=== PATIENT | male | born 1965 | race Caucasian/White ===

== ENCOUNTER 2019-09-04 10:06 | Inpatient (IN) ==
[2019-09-04 10:42] LABS: BASO# 0.03 X1000 (0.0-0.2); BASO% 0.2 % (0.0-0.8); EOS# 0.13 X1000 (0.0-0.7); EOS% 0.8 % (0.0-10.0); HEMATOCRIT 45.7 % (42.0-52.0); HEMOGLOBIN 14.6 g/dL (14.0-18.0); IMM GRAN# 0.06 X1000 (0.0-0.04); IMM GRAN% 0.4 % (0.0-0.5); LYMPH# 2.73 X1000 (1.2-3.4); LYMPH% 17.6 % (20.5-51.1); MCH 30.4 PG (27-31); MCHC 31.9 g/dL (33-37); MCV 95.2 FL (81-99); MONO# 1.25 X1000 (0.11-0.59); MPV 11.5 FL (7.4-10.4); NEUT# 11.33 X1000 (1.4-6.5); PLT 245 X1000 (130-400); RDW 13.4 % (11.5-14.5); WBC 15.53 X1000 (4.8-10.8)
--- NOTE | 2019-09-04 10:52 | EKG Report ---
Test Performed on : 09/04/2019 10:21:31 AM Test Reason : dizzy pale weak dizzy hx a flutter htn Blood Pressure : / mmHG Vent. Rate : 109 BPM Atrial Rate : 109 BPM P-R Int : 152 ms QRS Dur : 070 ms QT Int : 344 ms P-R-T Axes : 033 030 029 degrees QTc Int : 463 ms Sinus tachycardia. Otherwise normal ECG When compared with ECG of 01-JUN-2016 19:51, No significant change was found Unconfirmed Result
[2019-09-04 11:05] LABS: AMYLASE 24 U/L (20-200); CK PROFILE 45 U/L (24-204)
[2019-09-04 11:21] LABS: AGAP 15; ALBUMIN 4.5 g/dL (3.5-5.0); ALKALINE PHOSPHATASE 108 U/L (32-122); BUN 9 mg/dL (8-22); CALCIUM 9.4 mg/dL (8.8-10.2); CHLORIDE 101 mmol/L (98-107); COSMO 273; CREATININE 0.9 mg/dL (0.7-1.2); ESTIMATED GFR > 60; GLUCOSE 115 mg/dL (70-104); GOT 19 U/L (10-34); GPT 31 U/L (10-44); LIPASE 19 U/L (13-60); SODIUM 137 mmol/L (136-145); TCO2 20 mmol/L (25-35); TOTAL PROTEIN 7.5 g/dL (6.3-8.3)
[2019-09-04 11:50] LABS: URINE SOURCE CLEAN CATCH
[2019-09-04 11:56] LABS: BILIRUBIN URINE NEGATIVE (NEGATIVE); BLOOD URINE NEGATIVE (NEGATIVE); COLOR YELLOW; GLUCOSE URINE NEGATIVE (NEGATIVE); KETONE URINE NEGATIVE (NEGATIVE); LEUKOCYTES URINE NEGATIVE (NEGATIVE); NITRITE URINE NEGATIVE (NEGATIVE); PH URINE 5.5; PROTEIN URINE TRACE mg/dL (NEGATIVE); SP GRAVITY URINE 1.021; TURBIDITY URINE CLEAR (CLEAR); UROBILINOGEN URINE NORMAL (NORMAL)
[2019-09-04 11:58] LABS: UR EPITHELIAL CELLS <10 /HPF (<10); URINE BACTERIA NEGATIVE /HPF; URINE RBC <10 /HPF (<10); URINE WBC <10 /HPF (<10)
[2019-09-04] MEDS ORDERED: ZOFRAN IV ONE (12:20)
--- NOTE | 2019-09-04 12:42 | Diag Imaging Result Doc PS360 ---
FLAT/UPRIGHT ABD/1 VIEW CHEST - 09/04/2019 INDICATION: abd pain dizzy weakness TECHNIQUE: COMPARISON: 05/03/2019 FINDINGS: The chest is clear. There is a nonobstructive bowel gas pattern. No free air or abnormal calcifications. IMPRESSION: Negative exam. Electronically signed by Sulaiman Hector 09/04/2019 12:40 PM
--- NOTE | 2019-09-04 12:58 | Diag Imaging Result Doc PS360 ---
CT ABDOMEN/PELVIS W/O CONTRAST - 09/04/2019 INDICATION: abd pain COMPARISON: None FINDINGS: The lung bases are clear and the heart size is normal. There is severe fatty change of the liver. No radiodense renal stones. No hydronephrosis or hydroureter. There is some inflammatory stranding around the proximal sigmoid colon. There are numerous diverticula here. No free air or free fluid. Urinary bladder, prostate, and rectum. There are moderate degenerative changes of the spine. No acute or suspicious bony lesion. IMPRESSION: 1. Acute diverticulitis of the sigmoid colon. No free air or abscess. 2. Severe fatty liver. This exam was performed using automated exposure control, adjustment of mA or kV according to patient size, and/or use of iterative reconstruction technique Electronically signed by Sulaiman Hector 09/04/2019 12:56 PM
[2019-09-04] MEDS ORDERED: ROCEPHIN IM ONE (13:24)
[2019-09-04] MEDS ORDERED: XYLOCAINE-MPF 1% INJ ONE (13:24)
[2019-09-04] MEDS ORDERED: FLAGYL 500 MG/NS 500 MG/100 ML IVPB IV ONE (13:24)
[2019-09-04] MEDS ORDERED: ROCEPHIN 1 GM in NS 50 ML IV ONE (13:25)
--- NOTE | 2019-09-04 13:28 | PROVIDER DOCUMENTATION ---
This chart was entered by Michelle Dorsey Scribe, acting as scribe for Zena Smalls MD. HPI-Abdominal Pain/GI Problem - General Chief Complaint: Abdominal Pain Stated Complaint: SEVERE ABD PAIN Time Seen by Provider: 09/04/19 11:36 Source: patient Allergies/Adverse Reactions: Patient Allergies Allergy/AdvReac Type Severity Reaction Status Date / Time No Known Allergies Allergy Verified 06/01/16 19:23 Home Medications: Home Medication List Medication Instructions Recorded Confirmed Last Taken Type Flecainide Acetate 50 mg PO BID 06/01/16 09/04/19 06/01/16 History Metoprolol Tartrate 25 mg PO BID 06/01/16 09/04/19 06/01/16 History Rabeprazole [Aciphex] 20 mg PO DAILY 06/01/16 09/04/19 06/01/16 History Telmisartan [Micardis] 40 mg PO DAILY 06/01/16 09/04/19 06/01/16 History Cephalexin [Keflex] 500 mg PO TID #20 cap 09/04/19 Unknown Rx Metronidazole [Flagyl] 500 mg PO TID #21 tab 09/04/19 Unknown Rx Montelukast Sodium 10 mg PO DAILY 09/04/19 09/04/19 Unknown History - History of Present Illness-ABD Nature of Presenting Problems: Pt is a 54 yowm with c/o of generalized abdominal pain that started and has gotten worse with the worst pain right above his groin area. Pt states " it feels like he did 100 situps". Pt states he has had some dizziness but denies n/v/f/d/constipation. Pt sts he has HTN and atrial flutter that are medication controlled but is not experiencing any chest pain or respiratory issues. Pt is alert and nontoxic in appearance. Abdominal Pain Onset Location: reports: suprapubic (pain more intense), generalized abdomen Pain Radiation: reports: periumbilical Quality of Pain: reports: aching, stabbing Severity in ED: reports: moderate Onset/Duration: reports: gradual, 2 days ago Timing: reports: still present, constant, getting worse Activities at Onset: reports: light activity Modifying Factors: worse with: movement, palpation Associated Symptoms: denies: back/neck pain, chest pain, constipation, cough, diarrhea, nausea, shortness of breath, syncope, vomiting Last BM: 24 hours ago Dark Stools Present?: reports: none noticed Bruising or Bleeding Gums?: No Similar Symptoms Previously?: No Review of Systems - Adult - REVIEW OF SYSTEMS - ADULT Constitutional: denies: chills, fever Eyes: reports: no symptoms reported Ears, Nose, Mouth & Throat: reports: no symptoms reported Cardiovascular: denies: chest pain, syncope Respiratory: denies: cough, shortness of breath Gastrointestinal: reports: see HPI, abdominal pain. denies: constipation, diarrhea, nausea, vomiting Genitourinary: denies: frequency, hesitency, incontinence Musculoskeletal: denies: back pain, muscle weakness Integumentary: reports: no symptoms reported Neurological: denies: dizziness/vertigo, headache/migraines, syncope Psychiatric: reports: no symptoms reported Endocrine: reports: no symptoms reported Hematologic/Lymphatic: reports: no symptoms reported Allergic/Immunologic: reports: no symptoms reported All Other Systems: Reviewed and Negative Past History - Adult - PAST MEDICAL HISTORY-ADULT Review of Records: reports: Old Records Reviewed, Nursing Assessment Review, Medications Reviewed, Social history reviewed & non-contributory. Major Childhood Illnesses: reports: denies history Cardiovascular: reports: HTN, other (ATRIAL FLUTTER) Respiratory: reports: denies history Gastrointestinal: reports: denies history Obstetrical/Gynecological: reports: denies history Genitourinary: reports: denies history Musculoskeletal: reports: denies history Neurological: reports: denies history Endocrine/Immune: reports: denies history Other Conditions: reports: denies history - PRIOR SURGERIES/PROCEDURES Surgical/Procedure History: reports: back/neck (NECK FUSION) - IMMUNIZATION STATUS Childhood Immunizations: See Nurse Assessment Flu Vaccine: See Nurse Assessment - FAMILY HISTORY Family History: reviewed, not pertinent - SOCIAL HISTORY Smoking: non-smoker Substance Use: alcohol Alcohol Use Frequency: occasionally Number of drinks per typical drinking period:: 1 drink Living Situation: family Physical Exam-General - PHYSICAL EXAM-ADULT Initial Vital Signs Reviewed: Yes (HR 105) - CONSTITUTIONAL General Appearance: appears well, alert, mild distress, obese - EYES Eyes: PERRL/EOMI, pink conjunctivae - HEAD, EARS, NOSE, MOUTH & THROAT HENMT: normocephalic/atraumatic, moist mucous membranes, normal ENT inspection - NECK Neck: non-tender, full range of motion, supple, normal inspection - RESPIRATORY Respiratory: chest non-tender, lungs clear, normal breath sounds, no pleuratic chest pain, no respiratory distress, no accessory muscle use - CARDIOVASCULAR Cardiovascular: normal peripheral pulses, no gallop, no JVD, tachycardia, other (+2 pedal edema) - GASTROINTESTINAL (ABDOMEN) Abdominal Exam: normal bowel sounds, soft, tenderness (mild suprapubic) - GENITOURINARY Male Genitalia: deferred - MUSCULOSKELETAL Back Exam: normal inspection, no CVA tenderness, no vertebral tenderness Extremity: normal range of motion, non-tender, normal gait, normal inspection - SKIN Integumentary: normal color, normal turgor, warm/dry - PSYCHIATRIC Psych/Mental Status: normal thought content, normal thought process, oriented x 3, anxious Progress - PLAN OF CARE/RESULTS Progress/Plan/Lab Results: Vital Signs - 8 hr 09/04/19 10:15 Temperature 98 F Pulse Rate 105 H Respiratory Rate 22 Blood Pressure 196/69 O2 Sat by Pulse Oximetry 97 Laboratory Results - last 24 hr 09/04/19 09/04/19 09/04/19 10:15 10:17 10:17 WBC 15.53 H RBC 4.80 Hgb 14.6 Hct 45.7 MCV 95.2 MCH 30.4 MCHC 31.9 L RDW Std Deviation 13.4 Plt Count 245 MPV 11.5 H Immature Gran % (Auto) 0.4 Neut % (Auto) 73.0 Lymph % (Auto) 17.6 L [place] % (Auto) 8.0 Eos % (Auto) 0.8 Baso % (Auto) 0.2 Immature Gran # (Auto) 0.06 H Neut # (Auto) 11.33 H Lymph # (Auto) 2.73 [place] # (Auto) 1.25 H Eos # (Auto) 0.13 Baso # (Auto) 0.03 D-Dimer, Quantitative Sodium Potassium Chloride Carbon Dioxide Anion Gap BUN Creatinine Estimated GFR/1.73 m2 BUN/Creatinine Ratio Glucose Calculated Osmolality Calcium Total Bilirubin AST ALT Alkaline Phosphatase Creatine Kinase 45 Troponin T High Sens Cyt-D-Fesyicchqty Pept Total Protein Albumin Globulin Albumin/Globulin Ratio Amylase 24 Lipase Urine Source CLEAN CATCH Urine Color YELLOW Urine Turbidity CLEAR Urine pH 5.5 Ur Specific [place] 1.021 Urine Protein TRACE A Ur Glucose (Stick) NEGATIVE Ur Ketones (Stick) NEGATIVE Urine Blood NEGATIVE Urine Nitrite NEGATIVE Urine Bilirubin NEGATIVE Urobilinogen Dipstick NORMAL Urine Leukocytes NEGATIVE Urine WBC (Auto) <10 Urine RBC (Auto) <10 U Epithel Cells (Auto) <10 Urine Bacteria (Auto) NEGATIVE 09/04/19 09/04/19 09/04/19 10:17 10:17 10:17 WBC RBC Hgb Hct MCV MCH MCHC RDW Std Deviation Plt Count MPV Immature Gran % (Auto) Neut % (Auto) Lymph % (Auto) [place] % (Auto) Eos % (Auto) Baso % (Auto) Immature Gran # (Auto) Neut # (Auto) Lymph # (Auto) [place] # (Auto) Eos # (Auto) Baso # (Auto) D-Dimer, Quantitative 0.30 Sodium 137 Potassium 4.0 Chloride 101 Carbon Dioxide 20 L Anion Gap 15 BUN 9 Creatinine 0.9 Estimated GFR/1.73 m2 > 60 BUN/Creatinine Ratio 10 Glucose 115 H Calculated Osmolality 273 Calcium 9.4 Total Bilirubin 1.30 H AST 19 ALT 31 Alkaline Phosphatase 108 Creatine Kinase Troponin T High Sens Gtk-T-Eokcwgqsqva Pept 47 Total Protein 7.5 Albumin 4.5 Globulin 3.0 Albumin/Globulin Ratio 2.0 Amylase Lipase 19 Urine Source Urine Color Urine Turbidity Urine pH Ur Specific [place] Urine Protein Ur Glucose (Stick) Ur Ketones (Stick) Urine Blood Urine Nitrite Urine Bilirubin Urobilinogen Dipstick Urine Leukocytes Urine WBC (Auto) Urine RBC (Auto) U Epithel Cells (Auto) Urine Bacteria (Auto) 09/04/19 10:17 WBC RBC Hgb Hct MCV MCH MCHC RDW Std Deviation Plt Count MPV Immature Gran % (Auto) Neut % (Auto) Lymph % (Auto) [place] % (Auto) Eos % (Auto) Baso % (Auto) Immature Gran # (Auto) Neut # (Auto) Lymph # (Auto) [place] # (Auto) Eos # (Auto) Baso # (Auto) D-Dimer, Quantitative Sodium Potassium Chloride Carbon Dioxide Anion Gap BUN Creatinine Estimated GFR/1.73 m2 BUN/Creatinine Ratio Glucose Calculated Osmolality Calcium Total Bilirubin AST ALT Alkaline Phosphatase Creatine Kinase Troponin T High Sens < 6 Dtz-C-Zfnsvvffjqx Pept Total Protein Albumin Globulin Albumin/Globulin Ratio Amylase Lipase Urine Source Urine Color Urine Turbidity Urine pH Ur Specific [place] Urine Protein Ur Glucose (Stick) Ur Ketones (Stick) Urine Blood Urine Nitrite Urine Bilirubin Urobilinogen Dipstick Urine Leukocytes Urine WBC (Auto) Urine RBC (Auto) U Epithel Cells (Auto) Urine Bacteria (Auto) Orders Category Date Time Status Nursing- Obtain EKG ONCE Care 09/04/19 10:22 Active FLAT/UPRIGHT ABD/1 VIEW CHEST [RAD] Stat Exams 09/04/19 10:22 Taken AMYLASE [CHEM] Stat Lab 09/04/19 10:17 Completed CBC WITH DIFF [HEME] Stat Lab 09/04/19 10:17 Completed CK PROFILE [SP CHEM] Stat Lab 09/04/19 10:17 Completed COMPREHENSIVE METABOLIC PANEL [CHEM] Stat Lab 09/04/19 10:17 Completed D-DIMER [COAG] Stat Lab 09/04/19 10:17 Completed LIPASE [CHEM] Stat Lab 09/04/19 10:17 Completed PRO B-NATRIURETIC PEPTIDE Stat Lab 09/04/19 10:17 Completed TROPONIN T HIGH SENSITIVITY Stat Lab 09/04/19 10:17 Completed URINALYSIS W/POSS RFLX CULT [URINALYSIS] Stat Lab 09/04/19 10:15 Completed EKG [EKG] Stat Ther 09/04/19 10:22 Draft Result Diagrams: 09/04/19 10:17 09/04/19 10:17 - REASSESSMENT Reassessment #1 Status: improving (patient with evidence of diverticulitis will treat outpatient abx and fu with GI) - XRAY 1 XRAY Study: Abdomen Impression: See EMR Report (FLAT/UPRIGHT ABD/1 VIEW CHEST - 09/04/2019 INDICATION: abd pain dizzy weakness TECHNIQUE: COMPARISON: 05/03/2019 FINDINGS: The chest is clear. There is a nonobstructive bowel gas pattern. No free air or abnormal calcifications. IMPRESSION: Negative exam. Electronically signed by Sulaiman Hector 09/04/2019 12:40 PM 09/04/19 1240 Interpreting Physician: Sulaiman Hector MD Dictated Date/Time: 09/04/19 1236 cc: Zena Smalls MD; Jacob Ta MD) - CT/MRI 1 CT Study: Abdomen Impression: Abnormal, See EMR Report (CT ABDOMEN/PELVIS W/O CONTRAST - 09/04/2019 INDICATION: abd pain COMPARISON: None FINDINGS: The lung bases are clear and the heart size is normal. There is severe fatty change of the liver. No radiodense renal stones. No hydronephrosis or hydroureter. There is some inflam matory stranding around the proximal sigmoid colon. There are numerous diverticula here. No free air or free fluid. Urinary bladder, prostate, and rectum. There are moderate degenerative changes of the spine. No acute or suspicious bony lesion. IMPRESSION: 1. Acute diverticulitis of the sigmoid colon. No free air or abscess. 2. Severe fatty liver. This exam was performed using automated exposure control, adjustment of mA or kV according to patient size, and/or use of iterative reconstruction technique Electronically signed by Sulaiman Hector 09/04/2019 12:56 PM 09/04/19 1256 Interpreting Physician: Sulaiman Hector MD Dictated Date/Time: 09/04/19 1251 cc: Zena Smalls MD; Jacob Ta MD) Departure - Departure Date of Disposition Decision: 09/04/19 Time of Disposition Decision: 13:21 DIAGNOSIS: Diverticulitis large intestine, Diverticulitis large intestine w/o perforation or abscess w/o bleeding Disposition: HOME 01 Certified Medical Emergency: Emergent Condition: Stable Additional Instructions: ED Follow Up Instructions: You have been treated by a care provider in the Emergency Department. These inst ructions are being provided to you so you can have an understanding of how to care for yourself upon discharge. Upon discharge from the Emergency Department, you are responsible for making arrangements for follow-up care by a physician of your choice. followup with GI Take all prescribed medications as directed. Return to the Emergency Department immediately for any new or worsening symptoms. You may call the Physician Referral phone number at [phone] to obtain a list of Physicians who are taking new patients. Prescriptions: Metronidazole [Flagyl] 500 mg PO TID #21 tab Cephalexin [Keflex] 500 mg PO TID #20 cap Referrals and Follow-Ups: Jacob Ta MD [Primary Care Provider] - Discharge Education: Diverticulitis, [id number] - Critical Care Note This patient required my direct & personal management of CC.: No Attestation - Physician/ TRAY Attestation Patient care was provided by Advanced Practice Provider:: No The physician spent face to face time with patient:: Yes Advanced Practice Provider documentation review:: Supervising physician onsite and consulted in the evaluation and care of this patient. The physician did have a face to face encounter with the patient. This chart was documented by the indicated scribe, (Michelle Dorsey, Carolyn) and accurately reflects the services I performed and decisions made by me, Zena Smalls MD, as attested by the provider's signature.
[2019-09-04] MEDS ORDERED: NS 50 ML ONE (14:09)
[2019-09-04] MEDS ORDERED: ROCEPHIN ONE (15:16)
[2019-09-04] MEDS ORDERED: ULTRAM ONE (15:16)
[2019-09-04] MEDS ORDERED: XYLOCAINE-MPF 1% ONE (15:18)
[2019-09-04] MEDS ORDERED: ULTRAM PO SCH ×2 (15:20→15:45)
[2019-09-04] MEDS: LEVAQUIN 750 MG/D5W 750 MG/150 ML IVPB IV SCH (17:19)
[2019-09-04] MEDS: NS 1,000 ML IV SCH (17:19)
[2019-09-04] MEDS: DILAUDID IV PRN ×2 (18:03→21:57)
[2019-09-04] MEDS: ZOFRAN IV PRN ×2 (18:04→21:57)
--- NOTE | 2019-09-04 20:30 | HISTORY AND PHYSICAL ---
CHIEF COMPLAINT: Abdominal pain. HISTORY OF PRESENT ILLNESS: This patient is a 66-year-old male who was admitted with a history of cardiac dysrhythmia, though his heart has been normal for the last several years on medications. He presented to the hospital ER with abdominal pain that started 2 days ago. States it is continuing to get worse. He is having diffuse intense pain. Denies any real nausea, vomiting. Denies fevers. Denies constipation, melena, hematochezia. Has had a colonoscopy in the past. He has never been told he had diverticulosis, to his knowledge. ALLERGIES: No known drug allergies. MEDICATIONS: Flecainide 50 b.i.d., Toprol 25 b.i.d., AcipHex 20, Micardis 40, and Singulair 10. PAST MEDICAL HISTORY: Hypertension, atrial flutter. PAST SURGICAL HISTORY: Neck fusion. FAMILY HISTORY: Noncontributory. SOCIAL HISTORY: He does drink occasionally. Does not use tobacco or other illicit substances. REVIEW OF SYSTEMS: As noted above. Denies any fevers, chills, cough, congestion. Denies dysuria, frequency, urgency, hesitancy, polyuria or polydipsia. Denies skin rashes. Denies headaches, blurred vision, change in vision. Denies any focalized weakness. PHYSICAL EXAMINATION: VITAL SIGNS: Reviewed. Temperature 98, pulse 105, respiratory rate 18, BP 196/69, saturation 96% on room air. GENERAL: The patient is awake, pleasant. He is in moderate distress due to pain. In no respiratory distress. HEENT: Normocephalic. NECK: Supple. CARDIOVASCULAR: Regular rate. CHEST: Clear, nonlabored. ABDOMEN: Obese, diffusely tender, nondistended. No guarding. No rebound. EXTREMITIES: Moves all extremities. No edema. NEUROLOGIC: No changes. LABS: WBCs 15. ASSESSMENT: 1. Diverticulitis of the sigmoid colon. 2. Severe fatty liver. 3. Obesity. 4. Hypertension. 5. History of atrial flutter. PLAN: We are going to admit the patient to hospital. IV Levaquin, Flagyl, Dilaudid for pain, IV fluids, clear liquids and will follow. cc: Liang Ly MD
[2019-09-04] MEDS: LOPRESSOR PO SCH (20:41)
[2019-09-04] MEDS: TAMBOCOR PO SCH (20:42)
[2019-09-04] MEDS: FLAGYL 500 MG/NS 500 MG/100 ML IVPB IV SCH (20:42)
[2019-09-05] MEDS: ZOFRAN IV PRN ×5 (02:13→19:53)
[2019-09-05] MEDS: DILAUDID IV PRN ×5 (02:14→22:00)
[2019-09-05] MEDS: FLAGYL 500 MG/NS 500 MG/100 ML IVPB IV SCH ×4 (02:14→21:29)
[2019-09-05] MEDS: PRILOSEC PO SCH (06:12)
[2019-09-05 06:31] LABS: HEMATOCRIT 40.6 % (42.0-52.0); HEMOGLOBIN 13.3 g/dL (14.0-18.0); MCH 31.6 PG (27-31); MCHC 32.8 g/dL (33-37); MCV 96.4 FL (81-99); MPV 11.2 FL (7.4-10.4); RBC 4.21 XMIL (4.7-6.1); RDW 13.7 % (11.5-14.5); WBC 16.04 X1000 (4.8-10.8)
[2019-09-05 06:40] LABS: AGAP 12; ALBUMIN 3.7 g/dL (3.5-5.0); ALKALINE PHOSPHATASE 90 U/L (32-122); BUN 10 mg/dL (8-22); CALCIUM 8.5 mg/dL (8.8-10.2); CHLORIDE 102 mmol/L (98-107); COSMO 271; CREATININE 0.8 mg/dL (0.7-1.2); ESTIMATED GFR > 60; GLUCOSE 137 mg/dL (70-104); GOT 20 U/L (10-34); GPT 30 U/L (10-44); MAGNESIUM 1.8 mg/dL (1.5-2.7); POTASSIUM 3.9 mmol/L (3.5-5.1); SODIUM 135 mmol/L (136-145); TCO2 22 mmol/L (25-35)
[2019-09-05] MEDS: NS 1,000 ML IV SCH (08:31)
[2019-09-05] MEDS: TAMBOCOR PO SCH ×2 (08:32→21:30)
[2019-09-05] MEDS: MICARDIS PO SCH (08:32)
[2019-09-05] MEDS: SINGULAIR PO SCH (08:32)
[2019-09-05] MEDS: LOPRESSOR PO SCH ×2 (08:32→21:30)
[2019-09-05] MEDS ORDERED: DILAUDID IV PRN (11:08)
[2019-09-05] MEDS: LEVAQUIN 750 MG/D5W 750 MG/150 ML IVPB IV SCH (16:21)
[2019-09-05] MEDS: TYLENOL PO PRN (17:33)
--- NOTE | 2019-09-05 18:19 | PROGRESS NOTE ---
DATE: 09/05/2019 SUBJECTIVE: The patient notes his abdominal pain has improved, although still present, it is slightly better. Denies any fevers or chills. Does note his nausea worsen and the pain worsened when he attempted to drink earlier. PHYSICAL EXAM: Vital signs: Temperature 98.6, pulse 99, respiratory 20, BP 135/82. General: The patient is an obese male who is in no distress. He is pleasant. HEENT: Normocephalic. Neck: Supple. Cardiovascular: Regular rate. Chest: Clear, nonlabored. Abdomen: Soft, diffusely tender. No guarding. No rebounding. Neuro: No changes. Extremities: Moves all extremities. No edema. ASSESSMENT: 1. Diverticulitis of the sigmoid colon. Continue Levaquin and Flagyl. 2. Severe fatty liver. 3. Diabetes. 4. Hypertension. 5. Atrial flutter. Continue his home medications. cc: Liang Ly MD
[2019-09-06] MEDS: DILAUDID IV PRN ×3 (00:02→06:37)
[2019-09-06] MEDS: FLAGYL 500 MG/NS 500 MG/100 ML IVPB IV SCH ×3 (02:30→19:01)
[2019-09-06] MEDS: ZOFRAN IV PRN ×3 (02:36→20:27)
[2019-09-06] MEDS: NS 1,000 ML IV SCH (02:40)
[2019-09-06] MEDS: TYLENOL PO PRN (05:14)
[2019-09-06] MEDS: PRILOSEC PO SCH (06:36)
[2019-09-06 07:36] LABS: HEMATOCRIT 38.3 % (42.0-52.0); HEMOGLOBIN 12.3 g/dL (14.0-18.0); MCH 31.2 PG (27-31); MCHC 32.1 g/dL (33-37); MCV 97.2 FL (81-99); MPV 10.9 FL (7.4-10.4); RBC 3.94 XMIL (4.7-6.1); RDW 13.3 % (11.5-14.5); WBC 12.1 X1000 (4.8-10.8)
[2019-09-06 08:18] LABS: AGAP 13; ALBUMIN 3.4 g/dL (3.5-5.0); ALKALINE PHOSPHATASE 89 U/L (32-122); BUN 10 mg/dL (8-22); CALCIUM 8.7 mg/dL (8.8-10.2); CHLORIDE 98 mmol/L (98-107); COSMO 267; CREATININE 0.7 mg/dL (0.7-1.2); ESTIMATED GFR > 60; GLUCOSE 134 mg/dL (70-104); GOT 21 U/L (10-34); GPT 25 U/L (10-44); POTASSIUM 4.1 mmol/L (3.5-5.1); SODIUM 133 mmol/L (136-145); TCO2 22 mmol/L (25-35); TOTAL PROTEIN 7.1 g/dL (6.3-8.3)
--- NOTE | 2019-09-06 09:01 | Diag Imaging Result Doc PS360 ---
EXAM: KUB ABDOMEN HISTORY: pain TECHNIQUE: Single view COMPARISON: 09/04/2019 FINDINGS: The bowel gas pattern is nonobstructive. No organomegaly, mass effect, or abnormal calcifications are identified. IMPRESSION: No acute abnormality is appreciated. Electronically signed by Lucretia Peterson 09/06/2019 8:59 AM
--- NOTE | 2019-09-06 09:20 | Diag Imaging Result Doc PS360 ---
EXAM: CHEST-PORTABLE HISTORY: dyspnea TECHNIQUE: Single view of the chest was performed portably. COMPARISON: 09/04/2019 FINDINGS: Lung volumes are reduced with crowding of basilar bronchovascular structures.. There is cardiomegaly. The pulmonary vasculature is not congested. No infiltrate, effusion, or pneumothorax is appreciated. Surgical hardware lower cervical spine. IMPRESSION: Reduced lung volumes with crowding of basilar bronchovascular structures. Electronically signed by Lucretia Peterson 09/06/2019 9:17 AM
[2019-09-06] MEDS: MICARDIS PO SCH (09:30)
[2019-09-06] MEDS: LOPRESSOR PO SCH ×2 (09:30→20:28)
[2019-09-06] MEDS: TAMBOCOR PO SCH ×2 (09:31→20:27)
[2019-09-06] MEDS: SINGULAIR PO SCH (09:31)
--- NOTE | 2019-09-06 10:02 | Diag Imaging Result Doc PS360 ---
US ABDOMEN-COMPLETE - 09/06/2019 INDICATION: elevated t bili. TECHNIQUE: Gomez scale, color Doppler, and duplex evaluation of the abdomen was performed. Standard protocol. COMPARISON: None FINDINGS: Exam is limited by body habitus and bowel gas artifact. The liver appears enlarged and hyperechoic. No focal masses are appreciated. The IVC and aorta are obscured. The pancreas is obscured by bowel gas artifact. The gallbladder is free of stones and sludge has a normal caliber wall. The common bile duct measures 4 mm. The portal vein is patent with hepatopetal flow. Spleen is borderline enlarged at 12.4 cm. The kidneys appear normal bilaterally. There is no hydronephrosis. IMPRESSION: Limited study due to body habitus. No cholelithiasis is identified. Hepatic steatosis. Borderline splenomegaly. Electronically signed by Lucretia Peterson 09/06/2019 10:00 AM
[2019-09-06] MEDS: NORCO-7.5 PO PRN ×3 (11:16→20:27)
[2019-09-06] MEDS: LEVAQUIN 750 MG/D5W 750 MG/150 ML IVPB IV SCH (17:02)
[2019-09-07] MEDS: FLAGYL 500 MG/NS 500 MG/100 ML IVPB IV SCH ×2 (00:23→06:10)
[2019-09-07] MEDS: NORCO-7.5 PO PRN ×3 (00:24→11:04)
[2019-09-07] MEDS: NS 1,000 ML IV SCH (02:45)
[2019-09-07 05:40] VITALS: BP 157/81
[2019-09-07] MEDS: PRILOSEC PO SCH (06:10)
[2019-09-07] MEDS: TAMBOCOR PO SCH (08:36)
[2019-09-07] MEDS: SINGULAIR PO SCH (08:36)
[2019-09-07] MEDS: LOPRESSOR PO SCH (08:37)
[2019-09-07] MEDS: MICARDIS PO SCH (08:37)
--- NOTE | 2019-09-07 10:24 | PROGRESS NOTE ---
DATE: 09/06/2019 SUBJECTIVE: The patient notes that he is still having abdominal cramping and pain, overall thinks he is better. PHYSICAL EXAMINATION: Vital Signs: Reviewed. Temperature 97 degrees, pulse 103, respiratory 18, blood pressure 166/91, saturating 94% on 4 L. General: Patient is awake, pleasant. He is in no respiratory distress currently although he is on oxygen. He is sitting in the bed. He is having difficulty with his oxygen dropping after pain medication. HEENT: Normocephalic. Neck: Supple. Cardiovascular: Regular rate. Chest: Equal breath sounds bilaterally. Good air movement. No wheezing. No crackles. Abdomen: Soft, obese. Decreased bowel sounds. Diffusely tender although much less so than previous. Extremities: Moves all extremities. Neurologic: No changes. ASSESSMENT: 1. Diverticulitis. 2. Severe fatty liver. 3. Morbid obesity. 4. Hyperbilirubinemia. 5. Hypertension. 6. History of atrial flutter. 7. Acute hypoxic respiratory failure. PLAN: We are going to continue patient in the hospital, continue antibiotics, oxygen, breathing treatments. Continue to follow. We will check an ultrasound of his abdomen given the elevation in his bilirubin and will follow. cc: Liang Ly MD
[2019-09-07] MEDS ORDERED: FLAGYL PO SCH (13:00)
[2019-09-07] MEDS ORDERED: LEVAQUIN PO SCH (17:00)
--- NOTE | 2019-09-07 21:42 | DISCHARGE SUMMARY ---
ADMISSION DATE: 09/04/2019 DISCHARGE DATE: 09/07/2019 PRIMARY CARE PHYSICIAN: Jacob Ta MD. ADMISSION DIAGNOSES: 1. Diverticulitis of the sigmoid colon. 2. Severe fatty liver. 3. Obesity. 4. Hypertension. 5. History of atrial flutter. DISCHARGE DIAGNOSES: 1. Diverticulitis of the sigmoid colon. 2. Severe fatty liver. 3. Obesity. 4. Hypertension. 5. History of atrial flutter. SUMMARY OF FINDINGS: This is a 54-year-old male who presented to the emergency room with complaints of abdominal pain that began 2 days prior to arriving and progressively worsened. Described it as a diffuse intense pain. Denied any nausea or vomiting. Denied any constipation, melena or hematochezia. States he had a colonoscopy in the past and had never been told he had diverticulosis to his knowledge. Workup showed a CT of the abdomen and pelvis with an acute diverticulitis of the sigmoid colon. No free air or abscesses and a severe fatty liver. He was admitted placed on IV Levaquin, Flagyl, Dilaudid for pain, clear liquids initially and has now advanced up to a full liquid diet. States he is feeling much better. White count has returned to almost normal at 12 today, and it felt that he can safely be discharged home. DISCHARGE MEDICATIONS: Include flecainide 50 mg p.o. b.i.d., [place] 7.5 one p.o. q.4 hours p.r.n. #20 with no refills, Levaquin 500 p.o. daily #5 with no refills, metoprolol 25 mg p.o. b.i.d., montelukast sodium 10 mg p.o. daily. AcipHex 20 mg p.o. daily, telmisartan 40 mg p.o. daily. FOLLOWUP: He will need to follow up with his primary care physician in the next 1 to 2 weeks and call their office for an appointment. This was a 35 minute discharge. Dictated by PAXTON Lovell for Liang Ly MD cc: PAXTON Lovell MD Michael C. Donham, MD
--- NOTE | 2019-09-08 04:55 | DISCHARGE SUMMARY ---
ADMISSION DATE: 09/04/2019 DISCHARGE DATE: 09/07/2019 Patient seen and examined by myself. Full note dictated and discussed with nurse practitioner. On discharge, patient is awake, alert, and pleasant. He is in no distress. His abdominal pain is almost completely resolved. We are going to discharge him home on antibiotics for a total 10 day course. We will continue [place] as needed. We will follow up outpatient with primary care. He certainly may require endoscopy in the future. As he is improved, we are not going to make him stay in the hospital for this to occur. cc: Liang Ly MD
== END 2019-09-07 12:05 | disposition home or self-care (01) | DRG 391 ==
LOC: P.ED 10:06 → P.MEDSURG 16:36
PROVIDERS: ATTEND Family Medicine